=== PATIENT | male | born 1970 | race Caucasian/White ===

== ENCOUNTER 2024-01-19 09:07 | Outpatient (CLI) | payer OTHER, SELFPAY ==
--- NOTE | 2024-01-19 09:13 | MR_ITS ---
WS: [id number] MRI CERVICAL SPINE NONCONTRAST HISTORY: PAIN IN NECK W/TINGLING OR RADIATING PAIN TO SHOULDERS COMPARISON: None available. Technique: Multiplanar, multisequence noncontrast imaging of the cervical spine. Normal cervical alignment. Mild disc space narrowing and desiccation. Signal within the cervical cord is normal. Visualized posterior fossa is unremarkable. Craniocervical junction, C1 and C2 relationship, odontoid process and soft tissues are normal. C2-C3: Normal. C3-C4: Small central disc protrusion and mild facet arthritis. No stenosis. C4-C5: Annular disc bulge with a small central disc protrusion and osteophytic ridging. Mild central and bilateral foraminal stenosis. Slightly greater stenosis RIGHT foramen. C5-C6: Osteophytic ridging and annular disc bulging with a tiny central disc protrusion. Moderate fac et arthritis. Mild central with moderate foraminal stenosis. C6-C7: Diffuse annular disc bulging and osteophytic ridging. Mild central with moderate to severe for aminal stenosis. C7-T1: Normal. Paraspinal soft tissue are normal. MR/MR cervical spin wo con* [id number] IMPRESSION: 1. No acute cervical spine fracture. 2. C6-7: Annular disc bulging with osteophytic ridging. Mild central with mode rate to severe bilateral foraminal stenosis due to disc osteophytes. 3. C5-6: Mild central with moderate bilateral foraminal stenosis due to disc o steophyte disease. 4. C4-5: Mild central and bilateral foraminal stenosis, greater on the RIGHT.
== END 2024-01-19 09:08 | disposition home or self-care (01) ==
LOC: RAD 09:07
PROVIDERS: Visit Provider Nurse Practitioner Family
DX: M50.323 Other cervical disc degeneration at C6-C7 level (principal); M48.02 Spinal stenosis, cervical region; M25.78 Osteophyte, vertebrae; M99.61 Osseous and subluxation stenosis of intervertebral foramina of cervical region
CPT/HCPCS: 72141

== ENCOUNTER 2024-06-18 20:00 | Outpatient (CLI) | payer OTHER, SELFPAY | END 2024-06-18 20:01 | disposition home or self-care (01) | LOC: SLEEP 23:22 | PROVIDERS: Visit Provider Family Medicine | DX: R06.83 Snoring (principal) | CPT/HCPCS: 95810 ==

== ENCOUNTER 2025-04-08 06:58 | Outpatient (CLI) | payer OTHER, SELFPAY ==
--- NOTE | 2025-04-08 07:11 | MR_ITS ---
WS: [id number] MRI CERVICAL SPINE NONCONTRAST TECHNIQUE: Sagittal T1, T2 and STIR imaging. Axial T2, gradient, and fiesta imaging. CLINICAL INFORMATION: NECK PAIN COMPARISON: 01/19/2024 FINDINGS: Straightening of the normal cervical lordosis. Disc bulging worse at C4-C6. No high-grade central canal stenosis. Cord signal is normal. C2-C3: Normal. C3-C4: Mild facet arthropathy. Mild RIGHT foraminal narrowing. Spinal canal is patent. Tiny annular fissure. C4-C5: Disc osteophyte complex with mild central canal stenosis. Moderate facet arthropathy. Moderate RIGHT bony foraminal narrowing. C5-C6: Disc osteophyte complex with slight indentation on the cervical cord. Mild central canal stenosis. Severe LEFT greater than RIGHT bony foraminal narrowing with moderate facet arthropathy and uncovertebral joint hypertrophy. C6-C7: Disc osteophyte protrusion with mild central canal stenosis and slight indentation cervical cord. Uncovertebral joint hypertrophy. Severe bilateral bony foraminal narrowing. C7-T1: No significant disc bulging. Mild LEFT foraminal narrowing. Spinal canal is patent. Visualized brain stem structures: Normal. Prevertebral soft tissues: Normal. MR/MR cervical spin wo con* [id number] IMPRESSION: 1. Disc osteophyte protrusions at C4-C6 with mild central canal stenosis worse at C5-C6 with slight indentation on the cervical cord. Central canal stenosis appears slightly progressed compared to previous. 2. Moderate to severe bony foraminal narrowing worse at the RIGHT C4-5, LEFT g reater than RIGHT C5-C6, and bilateral C6-7. 3. No other significant interval changes.
== END 2025-04-08 06:59 | disposition home or self-care (01) ==
LOC: RAD 06:59
PROVIDERS: PCP Family Medicine; Visit Provider Family Medicine
DX: M48.02 Spinal stenosis, cervical region (principal); M50.121 Cervical disc disorder at C4-C5 level with radiculopathy; M50.222 Other cervical disc displacement at C5-C6 level; M89.38 Hypertrophy of bone, other site; M99.61 Osseous and subluxation stenosis of intervertebral foramina of cervical region
CPT/HCPCS: 72141

== ENCOUNTER 2025-04-16 08:22 | Outpatient (RCR) | payer OTHER, SELFPAY | END 2025-05-05 23:59 | disposition home or self-care (01) | LOC: SPT 08:22 | PROVIDERS: PCP Family Medicine; Visit Provider Family Medicine | DX: M54.2 Cervicalgia (principal) | CPT/HCPCS: 97161 ==